=== PATIENT | male | born 1960 | race Caucasian/White ===

== ENCOUNTER 2017-12-24 13:23 | Emergency (ER) | payer BC ==
--- NOTE | 2017-12-24 15:17 | ER Document Report ---
ED Medical Screen (RME) - General Chief Complaint: High Blood Pressure Stated Complaint: BLOOD PRESSURE PROBLEMS Time Seen by Provider: 12/24/17 15:05 Mode of Arrival: Ambulatory Information source: Patient TRAVEL OUTSIDE OF THE [place] IN LAST 30 DAYS: No - HPI Patient complains to provider of: ringing in ears, high bp Notes: 12/24/17 15:16 Patient is here with complaints of ringing in his ears for 2 weeks. States he has had some intermittent blurred vision in the left eye. States that he took his blood pressure and noted it was 190/100 and was instructed to come to the emergency department. He denies any numbness, tingling, weakness. No chest pain or shortness of breath. Patient states that he has a history of high blood pressure as well as high cholesterol but does not take any sort of medication. He does vapor and states that he drinks daily. Patient was directed to come the emergency department to be evaluated. Physical exam: No acute distress, nonfocal neurological exam. No bruit. Plan: Head CT, labs, EKG, chest x-ray. An initial examination was made on the patient as part of the triage process, and it was determined a more comprehensive evaluation was necessary. Initial labs were ordered and patient was transferred to another provider in the ED who assumed care and finished evaluation and plan. - Related Data Allergies/Adverse Reactions: No Known Allergies Allergy (Unverified 12/24/17 13:26) Past Medical History - Social History Frequency of alcohol use: Social Drug Abuse: None Renal/ Medical History: Denies: Hx Peritoneal Dialysis
[2017-12-24 16:20] LABS: ABSOLUTE MONOCYTES (AUTO) 0.6 10^3/uL (0.1-1.4); BASOPHILS % (AUTO) 0.5 % (0-2); EOSINOPHILS % (AUTO) 0.4 % (0-6); HEMATOCRIT 49.1 % (37.9-51.0); HEMOGLOBIN 16.5 g/dL (13.5-17.0); LYMPHOCYTES % (AUTO) 25.8 % (13-45); MEAN CORPUSCULAR HEMOGLOBIN 31.2 pg (27.0-33.4); MEAN CORPUSCULAR HGB CONC 33.5 g/dL (32.0-36.0); MEAN CORPUSCULAR VOLUME 93 fl (80-97); MONOCYTES % (AUTO) 7.2 % (3-13); PLATELET COUNT 258 10^3/uL (150-450); RED BLOOD COUNT 5.28 10^6/uL (4.35-5.55); RED CELL DISTRIBUTION WIDTH 13.3 % (11.5-14.0); SEGMENTED NEUTROPHILS % (AUTO) 66.1 % (42-78); TOTAL CELLS COUNTED % (AUTO) 100 %; WHITE BLOOD COUNT 7.6 10^3/uL (4.0-10.5)
[2017-12-24 16:38] LABS: ALANINE AMINOTRANSFERASE 74 U/L (21-72); ALBUMIN 4.8 g/dL (3.5-5.0); ALKALINE PHOSPHATASE 54 U/L (38-126); ANION GAP 18 (5-19); ASPARTATE AMINO TRANSFERASE 52 U/L (17-59); BILIRUBIN,DIRECT 0.3 mg/dL (0.0-0.4); BILIRUBIN,TOTAL 0.7 mg/dL (0.2-1.3); BLOOD UREA NITROGEN 22 mg/dL (7-20); CALCIUM 10.4 mg/dL (8.4-10.2); CARBON DIOXIDE 23 mmol/L (22-30); CHLORIDE 106 mmol/L (98-107); GLUCOSE 106 mg/dL (75-110); POTASSIUM 4.2 mmol/L (3.6-5.0); SODIUM 146.8 mmol/L (137-145); TOTAL PROTEIN 6.7 g/dL (6.3-8.2)
[2017-12-24] MEDS ORDERED: HYDROCHLOROTHIAZIDE 25 MG TABLET PO ONE (17:42)
--- NOTE | 2017-12-24 17:54 | ER Document Report ---
ED General - General Chief Complaint: High Blood Pressure Stated Complaint: BLOOD PRESSURE PROBLEMS Time Seen by Provider: 12/24/17 15:05 Mode of Arrival: Ambulatory Information source: Patient TRAVEL OUTSIDE OF THE [place] IN LAST 30 DAYS: No - HPI Patient complains to provider of: tinnitis, high bp Notes: Patient is here with complaints of tinnitus. States that he has had ringing in both of his ears for approximately 2 weeks. It has been constant. Patient also complains of his blood pressure being elevated. He states that he has a history of elevated blood pressure, but is never been on any medication for this. States that he does not typically see a primary care doctor on a regular basis. Patient also complains of some intermittent blurred vision in his left eye. He denies any headache at this time. He denies any unilateral numbness, tingling, weakness. He denies any chest pain or shortness of breath. No abdominal pain. No nausea, vomiting, diarrhea. No rash. No fever. No dysuria or hematuria. Patient does drink alcohol on a daily basis. He also vapes nicotine. No other complaints at this time. - Related Data Allergies/Adverse Reactions: No Known Allergies Allergy (Unverified 12/24/17 13:26) Past Medical History - General Information source: Patient - Social History Smoking Status: Current Every Day Smoker Frequency of alcohol use: Social Drug Abuse: None Family History: Reviewed & Not Pertinent Patient has suicidal ideation: No Patient has homicidal ideation: No Renal/ Medical History: Denies: Hx Peritoneal Dialysis Review of Systems - Review of Systems -: Yes All other systems reviewed and negative Physical Exam - Vital signs Vitals: Temp Pulse BP Pulse Ox 97.9 F 63 171/85 H 96 12/24/17 13:46 12/24/17 13:46 12/24/17 13:46 12/24/17 13:46 - Notes Notes: GENERAL: alert, cooperative, nontoxic, no distress. HEAD: normocephalic, atraumatic EYES: conjunctiva pink without discharge, no external redness or swelling. Pupils are equal, round, reactive to light. EARS: no external swelling, no external redness NOSE: atraumatic, no external swelling MOUTH/THROAT: mucous membranes moist and pink, posterior pharynx without erythema, swelling, exudate. No trismus or drooling. NECK: soft, supple, full range of motion, no meningismus. CHEST: no distress, lungs clear and equal throughout. No wheezing, rales, rhonchi. CARDIAC: regular rate and rhythm, no murmur, normal capillary refill, normal pulses. No peripheral edema noted. BACK: full range of motion, no CVA tenderness. EXTREMITIES: full range of motion of all extremities. No redness, no swelling. NEURO: alert and oriented x 3, cranial nerves II through XII are grossly intact. Upper and lower extremities are equal throughout. Normal sensation. No focal deficits, full range of motion of all extremities. normal finger to nose. PYSCH: appropriate mood, affect. Patient is cooperative. SKIN: pink, warm, dry, no rash. Course - Re-evaluation Re-evalutation: 12/24/17 17:51 Patient is nontoxic appearing with stable vitals. Here with complaints of tinnitus and elevated blood pressure. He has had some intermittent blurred vision in his left eye. Is a nonfocal neurological exam at this time. Screening labs show slight elevation in his liver enzymes. CBC is unremarkable. EKG shows flattened T waves in V4 V5 V6. No other ischemic changes noted. Do not have any further EKGs to compare this to. I am currently ordered a troponin which is currently pending at this time. Due to his complaints of tinnitus with elevated blood pressure and the intermittent blurred vision, I had ordered a CT of the brain as well as a chest x-ray. The patient declined to have these tests done at this time. Patient will be given a dose of hydrochlorothiazide here in the emergency department. Pending his troponin results patient will be discharged AGAINST MEDICAL ADVICE due to the fact that he would not consent to the complete workup including head CT and chest x-ray with his neurological complaints. We will continue to monitor at this time. 12/24/17 18:32 Patient had a negative troponin. This point the patient will be discharged home with a prescription for hydrochlorothiazide. Instructed to follow-up with ENT, cardiology, primary care at the next available appointment. The patient was here with complaints of tinnitus, intermittent blurred vision and has an abnormal EKG with some flattened T waves in lead III as well as V4 V5 V6. The patient will be leaving AGAINST MEDICAL ADVICE with instructions to follow-up as directed and return the emergency department for any worsening symptoms at all. The patient and/or family have decided to leave against medical advice. The patient and/or family are of sound mind to make this decision. The risks of leaving were discussed with the patient and/or family who verbalized an understanding of these risks. The possibility of worsening condition, chance of increased morbidity, disability, mortality, and even were discussed. The patient and/or family still choose to leave against medical advice. Strict return instructions were given. They were also instructed to return to the emergency department for any concerns not outlined in the return instructions. - Vital Signs Vital signs: Temp Pulse Resp BP Pulse Ox 97.9 F 54 L 16 167/76 H 97 12/24/17 13:46 12/24/17 17:13 12/24/17 17:09 12/24/17 17:09 12/24/17 17:09 - Laboratory Result Diagrams: 12/24/17 15:53 12/24/17 15:53 Laboratory results interpreted by me: 12/24/17 15:53 Sodium 146.8 H BUN 22 H Calcium 10.4 H ALT 74 H - EKG Interpretation by Id EKG shows normal: Sinus rhythm, [place], Intervals, QRS Complexes Rate: Bradycardia When compared to previous EKG there are: Previous EKG unavailable Additional EKG results interpreted by me: 12/24/17 17:53 Flattened T waves in V4, V5, V6 as well as lead III Discharge - Discharge Clinical Impression: Abnormal EKG Tinnitus Qualifiers: Laterality: bilateral Qualified Code(s): H93.13 - Tinnitus, bilateral Hypertension Qualifiers: Hypertension type: unspecified Qualified Code(s): I10 - Essential (primary) hypertension Condition: Stable Disposition: AGAINST MEDICAL ADVICE Instructions: Electrogram Abnormality ([facility]), Family Physicians / Practices, High Blood Pressure ([facility]), Hydrochlorothiazide ([facility]) Additional Instructions: Take medications as prescribed. Follow-up with your primary care doctor at the next available appointment. Follow-up with cardiology at the next available appointment. Follow-up with ENT if your tinnitus persists. Return the emergency department immediately for worsening pain, high fever, difficulty breathing, numbness, tingling, weakness on one side your body, severe headache, chest pain or shortness of breath, or for any further concerns. Your blood pressure was elevated during today's visit. Have this rechecked with your doctor. Prescriptions: Hydrochlorothiazide 25 mg PO DAILY #30 tablet Forms: Elevated Blood Pressure, Smoking Cessation Education Referrals: [facility] [Provider Group] - Follow up as needed BENITA SINGH MD [ASSOCIATE] - Follow up as needed MELONY STALLWORTH MD [ACTIVE STAFF] - Follow up as needed VIKA CAIN MD [ACTIVE STAFF] - Follow up as needed
[2017-12-24 18:49] VITALS: BP 160/83
--- NOTE | 2017-12-24 19:43 | EKG REPORT ---
SEVERITY:- BORDERLINE ECG - SINUS RHYTHM BORDERLINE T WAVE ABNORMALITIES : Confirmed by: Esequiel Pozo MD 24-Dec-2017 19:42:31
== END 2017-12-24 18:49 | disposition left against medical advice (07) ==
LOC: ER 13:23
DX: I10 Essential (primary) hypertension (principal); H93.13 Tinnitus, bilateral; H53.8 Other visual disturbances; R74.8 Abnormal levels of other serum enzymes; R94.31 Abnormal electrocardiogram [ECG] [EKG]; R00.1 Bradycardia, unspecified; F17.290 Nicotine dependence, other tobacco product, uncomplicated; Z53.20 Procedure and treatment not carried out because of patient's decision for unspecified reasons
CPT/HCPCS: 36415; 80053; 84484; 85025; 93005; 93010; 99284